=== PATIENT | female | born 1975 | race Caucasian/White ===

== ENCOUNTER 2019-06-21 11:54 | Emergency (ER) | payer MEDICAID ==
[~2019-06-21] VITALS: Ht 149.9 cm; Wt 69.4 kg
[2019-06-21 13:36] VITALS: BP 115/73
== END 2019-06-21 14:00 | disposition home or self-care (01) ==
LOC: ED 11:54
DX: R10.816 Epigastric abdominal tenderness (principal); R10.811 Right upper quadrant abdominal tenderness
CPT/HCPCS: J1885; J2270